=== PATIENT | male | born 1990 | race Caucasian/White ===

== ENCOUNTER 2017-08-04 20:47 | Emergency (ER) | payer MEDICAID ==
[~2017-08-04] VITALS: Ht 175.3 cm; Wt 113.4 kg
--- NOTE | 2017-08-04 22:17 | NUR ---
PT CAME FROM HOME COMPLAIN OF ABDOMINAL PAIN A FEW DAYS WITH N/V FOR A FEW DAYS. BLOOD PRESSURE IS SLIGHTLY ELEVATED WHEN PLACED ON THE MONITOR. WAS IN TO SEE PT AWAIT NEW ORDERS.
[2017-08-04] MEDS ORDERED: MAG HYDROX/AL HYDROX/SIMETH 30 ML UDC ONE (22:22)
[2017-08-04] MEDS ORDERED: LIDOCAINE VISCOUS 2% UD 15 ML UDC ONE (22:22)
[2017-08-04] MEDS ORDERED: FAMOTIDINE (20 MG) 20 MG TABLET ONE (22:23)
--- NOTE | 2017-08-04 22:28 | NUR ---
LAB HERE BLOOD DRAWN
[2017-08-04] MEDS ORDERED: LIDOCAINE VISCOUS 2% UD 15 ML UDC MM ONE (22:30)
[2017-08-04] MEDS ORDERED: FAMOTIDINE (20 MG) 20 MG TABLET PO ONE (22:30)
[2017-08-04] MEDS ORDERED: MAG HYDROX/AL HYDROX/SIMETH 30 ML UDC PO ONE (22:30)
--- NOTE | 2017-08-04 22:32 | NUR ---
MEDICATION GIVEN ORDERED BY MD, LIDOCAINE 5ML AND MAALOX 30ML GIVEN TOGETHER. WAIT ANY NEW ORDERS
[2017-08-04 22:34] LABS: BASOPHILS # (AUTO) 0.1 /CMM (0.0-0.2); EOSINOPHILS # (AUTO) 0.2 /CMM (0.0-0.7); EOSINOPHILS % (AUTO) 1.9 % (0.0-6.0); HEMATOCRIT 42 % (39-51); HEMOGLOBIN 14.2 g/dL (13.5-17.5); LYMPHOCYTES # (AUTO) 2.7 /CMM (0.8-4.8); LYMPHOCYTES % (AUTO) 32.4 % (20.0-44.0); MEAN CORPUSCULAR HEMOGLOBIN 29 PG (26.0-33.0); MEAN CORPUSCULAR HGB CONC 33 g/dl (31.0-36.0); MEAN CORPUSCULAR VOLUME 85 fL (80-96); MONOCYTES # (AUTO) 0.4 /CMM (0.1-1.30); MONOCYTES % (AUTO) 5.2 % (2.0-12.0); NEUTROPHILS % (AUTO) 59.5 % (43.0-81.0); PLATELET COUNT (AUTO) 286 /CMM (150-450); RDW COEFFICIENT OF VARIATION 12.7 (11.5-15.0); RED BLOOD CELL COUNT(AUTO) 4.96 MIL/uL (4.5-6.0); WHITE BLOOD COUNT (AUTO) 8.4 K/uL (4.3-11.0)
[2017-08-04 22:50] LABS: ALBUMIN 3.9 g/dL (3.4-5.0); BILIRUBIN,DIRECT 0.1 mg/dL (0.0-0.2); BILIRUBIN,TOTAL 0.5 mg/dL (0.2-1.0); CREATININE 0.7 mg/dL (0.6-1.3); POTASSIUM 3.7 mmol/L (3.5-5.1); TOTAL PROTEIN, SERUM 7.5 g/dL (6.4-8.2)
--- NOTE | 2017-08-04 23:34 | NUR ---
pt given discahrge instructions, verbal teaching.
[2017-08-04 23:36] VITALS: BP 123/74
== END 2017-08-04 23:38 | disposition home or self-care (01) ==
LOC: ER 20:56
DX: K21.9 Gastro-esophageal reflux disease without esophagitis (principal)
CPT/HCPCS: 36415; 80048-TC; 80076-TC; 83690-TC; 85025-TC; A4606; Z7610

== ENCOUNTER 2019-08-27 07:27 | Inpatient (IN) | payer MEDICAID ==
[~2019-08-27] VITALS: Ht 175.3 cm; Wt 88.5 kg
[2019-08-27] VITALS (11 sets, daily range): BP systolic 103–162; BP diastolic 59–73
--- NOTE | 2019-08-27 07:34 | NUR ---
abd pain since this morning, +N/V, -Diarrhea. on room air, breathing evenly and unlabored. Kept comfortable, will continue to monitor accordingly.
--- NOTE | 2019-08-27 07:35 | NUR ---
waiting for MD for eval
[2019-08-27] MEDS ORDERED: ONDANSETRON HCL/PF 4 MG/2 ML VIAL ONE ×2 (07:55→09:56)
--- NOTE | 2019-08-27 07:58 | NUR ---
BLOOD DRAWN AND SENT TO LAB
[2019-08-27] MEDS ORDERED: ONDANSETRON HCL/PF 4 MG/2 ML VIAL IVP ONE (08:00)
[2019-08-27] MEDS ORDERED: IV NS 0.9% 1,000 ML BAG IV ONE (08:00)
[2019-08-27 08:06] LABS: BASOPHILS # (AUTO) 0.1 /CMM (0.0-0.2); HEMOGLOBIN 14.8 g/dL (13.5-17.5); PLATELET COUNT (AUTO) 262 /CMM (150-450)
[2019-08-27 08:11] LABS: BASOPHILS % (AUTO) 0.3 % (0.0-2.0); CALCIUM, SERUM 9.4 mg/dL (8.5-10.1); EOSINOPHILS % (AUTO) 1.1 % (0.0-6.0); HEMATOCRIT 46 % (39-51); LYMPHOCYTES # (AUTO) 2.9 /CMM (0.8-4.8); LYMPHOCYTES % (AUTO) 15.4 % (20.0-44.0); MEAN CORPUSCULAR HGB CONC 33 g/dl (31.0-36.0); MEAN CORPUSCULAR VOLUME 90 fL (80-96); MONOCYTES # (AUTO) 0.6 /CMM (0.1-1.30); MONOCYTES % (AUTO) 3.1 % (2.0-12.0); NEUTROPHILS # (AUTO) 15.1 /CMM (1.8-8.9); NEUTROPHILS % (AUTO) 80.1 % (43.0-81.0); POTASSIUM 3.6 mmol/L (3.5-5.1); RED BLOOD CELL COUNT(AUTO) 5.05 MIL/uL (4.5-6.0); WHITE BLOOD COUNT (AUTO) 18.8 K/uL (4.3-11.0)
[2019-08-27] MEDS ORDERED: MAG HYDROX/AL HYDROX/SIMETH 30 ML UDC ONE (08:15)
[2019-08-27] MEDS ORDERED: LIDOCAINE VISCOUS 2% UD 15 ML UDC ONE (08:15)
[2019-08-27] MEDS ORDERED: P-EPHED SUL/LORATADINE(12H) 1 TAB.SR.12H PO ONE (08:16)
[2019-08-27 08:17] LABS: ALBUMIN 4.3 g/dL (3.4-5.0); BILIRUBIN,DIRECT 0.1 mg/dL (0.0-0.2); BILIRUBIN,TOTAL 0.8 mg/dL (0.2-1.0); TOTAL PROTEIN, SERUM 7.7 g/dL (6.4-8.2)
[2019-08-27] MEDS ORDERED: FAMOTIDINE/PF INJ 20 MG/2 ML VIAL IV ONE ×2 (08:17→08:30)
[2019-08-27] MEDS ORDERED: MAG HYDROX/AL HYDROX/SIMETH 30 ML UDC PO ONE (08:30)
[2019-08-27] MEDS ORDERED: LIDOCAINE VISCOUS 2% UD 15 ML UDC MM ONE (08:30)
--- NOTE | 2019-08-27 08:35 | NUR ---
PT IS WHEELED TO CT SCAN VIA [facility].
[2019-08-27] MEDS ORDERED: IV NS 0.9% 250 ML IV ONE (08:38)
[2019-08-27] MEDS ORDERED: IOHEXOL-300 100 ML VIAL IV ONE (08:38)
[2019-08-27] MEDS ORDERED: CT SWABBABLE VALVE TRANS SET 1 EA INFUS.SET MC ONE (08:38)
--- NOTE | 2019-08-27 09:00 | NUR ---
Called Dr Quinones and spoke with Dr Aguilar.
[2019-08-27] MEDS ORDERED: PIPERACILLIN /TAZOBACTAM 3.375 G in IV D5W 50 ML IV ONE (09:30)
[2019-08-27 09:37] LABS: APPEARANCE,URINE Clear (CLEAR); BILIRUBIN,URINE Negative (NEGATIVE); BLOOD, URINE Trace-intact Ery/uL (NEGATIVE); COLOR,URINE Yellow (YELLOW); KETONES,URINE Negative (NEGATIVE); LEUKOCYTE ESTERASE ,URINE Negative (NEGATIVE); NITRITE, URINE Negative (NEGATIVE); PH,URINE 6.5 (5.0-8.0); PROTEIN,URINE Negative (NEGATIVE); UGLUCOSE Negative (NEGATIVE); UROBILINOGEN,URINE 0.2 EU/dL (0.2)
[2019-08-27 09:51] LABS: BACTERIA,URINE Rare /HPF (None Seen); RBC,URINE 0-2 /HPF (0-2); SQUAMOUS EPITHELIAL CELL,UR Rare /HPF (None Seen); WBC,URINE 0-2 /HPF (0-3)
[2019-08-27] MEDS ORDERED: ONDANSETRON HCL/PF - ER 4 MG/2 ML VIAL IV ONE (10:00)
--- NOTE | 2019-08-27 10:05 | NUR ---
ROOM GIVEN [id number]
--- NOTE | 2019-08-27 10:11 | NUR ---
Paged [employer] telecommunication operator is Paul Farley DNP.
--- NOTE | 2019-08-27 10:26 | NUR ---
TRANSPORTED TO [facility] W RN AND EMT
--- NOTE | 2019-08-27 10:26 | NUR ---
REPORT GIVEN TO PAT RENDON
--- NOTE | 2019-08-27 10:35 | NUR ---
MS MATERIAL FLOW ENGINEER NOTE PATIENT ARRIVED VIA GURNEY. PATIENT AMBULATORY WITH STEADY GAIT AND WALKED TO THE BED. PATIENT IN NO ACUTE DISTRESS. NO SOB NOTED. PATIENT BREATHING IS EVEN AND UNLABORED. PATIENT VITAL SIGNS WNL. PATIENT AND SON AT THE BEDSIDE. PATIENT NEEDS AND CONCERNS ADDRESSED. IV INTACT. NOTIFIED HANS BYERS AND DR. BEASLEY FOR APPENDECTOMY. MD MADE AWARE. PER HANS BYERS , HE WILL FOLLOW UP WITH ADMITTING ORDERS. PATIENT BED IS LOCKED AND IN LOWEST POSITION. CALL LIGHT WITHIN REACH. WILL CONTINUE TO MONITOR.
[2019-08-27] MEDS ORDERED: IV D5/0.45 NACL 1,000 ML IV PRN (12:13)
[2019-08-27] MEDS ORDERED: ONDANSETRON HCL/PF 4 MG/2 ML VIAL IV PRN (12:30)
[2019-08-27] MEDS ORDERED: ACETAMINOPHEN 325 MG TABLET PO PRN (12:30)
[2019-08-27] MEDS ORDERED: MORPHINE SULFATE INJ 2 MG/ML DISP.SYRIN IV PRN (12:30)
[2019-08-27] MEDS ORDERED: ONDANSETRON HCL/PF 4 MG/2 ML VIAL IVP PRN (12:30)
[2019-08-27] MEDS ORDERED: ZOLPIDEM TARTRATE 5 MG TABLET PO PRN (12:30)
[2019-08-27] MEDS ORDERED: FENTANYL PF 100MCG/2ML AMPUL ONE ×2 (13:44→14:56)
[2019-08-27] MEDS ORDERED: MIDAZOLAM HCL 2 MG/2ML VIAL ONE (13:45)
[2019-08-27] MEDS ORDERED: LIDOCAINE HCL/PF 1% 30 ML SDV ONE (14:35)
[2019-08-27] MEDS ORDERED: BUPIVACAINE MPF 0.5% W/EPI INJ 30 ML VIAL ONE (14:35)
[2019-08-27] MEDS ORDERED: KETOROLAC TROMETHAMINE INJ 60 MG/2 ML VIAL IM ONE (15:02)
[2019-08-27] MEDS ORDERED: KETOROLAC TROMETHAMINE INJ 30 MG/ML VIAL ONE (15:04)
[2019-08-27] MEDS: IBUPROFEN 400 MG TABLET PO SCH ×2 (16:00→23:43)
[2019-08-27] MEDS: GABAPENTIN 300 MG CAPSULE PO SCH ×2 (16:00→23:43)
[2019-08-27] MEDS: ACETAMINOPHEN 325 MG TABLET PO SCH ×2 (16:00→23:43)
--- NOTE | 2019-08-27 16:45 | NUR ---
MS RN NOTE PATIENT RETURNS TO BED FROM APPENDECTOMY. SURGICAL SITE BANDAGE IS CLEAN, DRY AND INTACT. PATIENT VITAL SIGNS WNL. MAINTAINED ON ICE CHIPS ONLY, WITH CLEAR LIQUID DIET IN THE MORNING. WILL FOLLOW UP WITH ORDERS.
[2019-08-27] MEDS: PIPERACILLIN /TAZOBACTAM 3.375 G in IV D5W 100 ML IV SCH ×2 (16:50→23:42)
--- NOTE | 2019-08-27 17:01 | NUR ---
MS RN NOTE HELD IBUPROFEN, ACETAMINOPHEN, AND GABAPENTIN 1600 DOSES DUE TO PATIENT RETURNED FROM APPENDECTOMY WITH ORDER OF ICE CHIPS ONLY FOR TONIGHT.
[2019-08-27] MEDS: IV D5/0.45 NACL 1,000 ML IV PRN (17:09)
[2019-08-27] MEDS ORDERED: PIPERACILLIN /TAZOBACTAM 3.375 G in IV D5W 50 ML IV SCH (18:00)
--- NOTE | 2019-08-27 18:43 | NUR ---
MS RN CLOSING NOTE PATIENT IN BED RESTING COMFORTABLY. PATIENT IN NO ACUTE DISTRESS. NO SOB NOTED. PATIENT BREATHING IS EVEN AND UNLABORED. PATIENT BREATHING ON ROOM AIR SATURATING >95% SPO2. PATIENT SURGICAL BANDAGE CLEAN, DRY AND INTACT. PATIENT VITAL SIGNS WNL. PATIENT NEEDS AND CONCERNS ADDRESSED. PATIENT MAINTAINED ON ICE CHIPS FOR TONIGHT. PATIENT AT THE BEDSIDE. PATIENT KEPT CLEAN, DRY, AND COMFORTABLE THROUGHOUT SHIFT. PATIENT BED IS LOCKED AND IN LOWEST POSITION. CALL LIGHT WITHIN REACH. WILL ENDORSE CARE TO PM SHIFT FOR JUAN. Addendum: 08/27/19 at 1918 by JUSTICE JOHNSTON RN ENDORSED TO PROGRAM MEDICAL DIRECTOR TO FOLLOW UP WITH REMAINING POST OP ROUTINE VITALS. VITALS WNL AT THIS TIME.
--- NOTE | 2019-08-27 19:10 | NUR ---
MS RN OPENING NOTES RECEIVED PATIENT SITTING UP IN BED, ALERT, ORIENTED X 4, FAMILY AT BEDSIDE. BREATHING EVEN AND UNLABORED. NOT IN ANY DISTRESS, ON ROOM AIR. NO COMPLAINTS AT THIS TIME. PATIENT'S SURGICAL BANDAGE CLEAN, DRY AND INTACT. PATIENT REMAINS ON ICE CHIPS TONIGHT. SAFETY MEASURES IN PLACE, CALL LIGHT WITHIN REACH. BED IN LOW, LOCKED POSITION. WILL CONTINUE TO MONITOR ACCORDINGLY
--- NOTE | 2019-08-27 23:21 | NUR ---
RN NOTES PATIENT C/O ABDOMINAL PAIN, 05/17. V/S WNL. MORPHINE 4MG IV GIVEN ORDERED. WILL CONTINUE TO MONITOR
[2019-08-28] MEDS: HYDROMORPHONE 1 MG/1 ML DISP.SYRIN IV PRN ×3 (03:18→11:34)
--- NOTE | 2019-08-28 03:18 | NUR ---
RN NOTES PATIENT C/O ABDOMINAL PAIN, 05/17. V/S WNL. DILAUDID 0.5MG IV GIVEN ORDERED. WILL CONTINUE TO MONITOR
--- NOTE | 2019-08-28 06:46 | NUR ---
MS RN CLOSING NOTES PATIENT RESTING IN BED, ALERT, ORIENTED X 4. BREATHING EVEN AND UNLABORED. NOT IN ANY DISTRESS. ON ROOM AIR. NO COMPLAINTS AT THIS TIME. PERIPHERAL IV INFUSING AT 150ML/HR. NO ACUTE CHANGES OVERNIGHT. ALL NEEDS ATTENDED. SAFETY MEASURES IN PLACE. CALL LIGHT WITHIN REACH, BED IN LOW, LOCKED POSITION. WILL ENDORSE JUAN TO ONCOMING RN
[2019-08-28] MEDS: IV D5/0.45 NACL 1,000 ML IV PRN (06:57)
--- NOTE | 2019-08-28 07:03 | NUR ---
PATIENT C/O ABDOMINAL PAIN, 05/17. V/S WNL. DILAUDID 0.5MG IV GIVEN ORDERED. EXCESS WASTED WITH ANOTHER RN. WILL CONTINUE TO MONITOR
[2019-08-28 07:06] LABS: BASOPHILS % (AUTO) 0.1 % (0.0-2.0); HEMATOCRIT 43 % (39-51); HEMOGLOBIN 13.9 g/dL (13.5-17.5); LYMPHOCYTES # (AUTO) 1.5 /CMM (0.8-4.8); LYMPHOCYTES % (AUTO) 9.5 % (20.0-44.0); MEAN CORPUSCULAR HGB CONC 32 g/dl (31.0-36.0); MEAN CORPUSCULAR VOLUME 90 fL (80-96); MONOCYTES # (AUTO) 0.5 /CMM (0.1-1.30); MONOCYTES % (AUTO) 3.5 % (2.0-12.0); NEUTROPHILS # (AUTO) 13.5 /CMM (1.8-8.9); NEUTROPHILS % (AUTO) 86.9 % (43.0-81.0); PLATELET COUNT (AUTO) 267 /CMM (150-450); RED BLOOD CELL COUNT(AUTO) 4.75 MIL/uL (4.5-6.0); WHITE BLOOD COUNT (AUTO) 15.6 K/uL (4.3-11.0)
--- NOTE | 2019-08-28 07:15 | NUR ---
MS RN NOTES PATIENT IN BED ALERT ORIENTED X 4. NO ACUTE DISTRESS NOTED. BREATHING UNLABORED. IV ACCESS PATENT AND INTACT. NO REDNESS OR SWELLING NOTED. SAFETY MEASURES IN PLACE. CALL LIGHT WITHIN REACH. WILL CONTINUE TO MONITOR ACCORDINGLY.
[2019-08-28 07:20] LABS: THYROID STIMULATING HORMONE 0.856 uIU/mL (0.358-3.74)
[2019-08-28 07:30] LABS: ALBUMIN 3.6 g/dL (3.4-5.0); BILIRUBIN,TOTAL 0.9 mg/dL (0.2-1.0); CALCIUM, SERUM 8.6 mg/dL (8.5-10.1); CREATININE 1.1 mg/dL (0.6-1.3); MAGNESIUM 1.7 mg/dL (1.8-2.4); PHOSPHORUS 3.2 mg/dL (2.5-4.9); POTASSIUM 3.9 mmol/L (3.5-5.1); TOTAL PROTEIN, SERUM 7.2 g/dL (6.4-8.2)
[2019-08-28 08:00] VITALS: BP 109/59
[2019-08-28] MEDS: IBUPROFEN 400 MG TABLET PO SCH ×2 (08:00→15:39)
[2019-08-28] MEDS: ACETAMINOPHEN 325 MG TABLET PO SCH ×2 (08:00→15:39)
[2019-08-28] MEDS: PIPERACILLIN /TAZOBACTAM 3.375 G in IV D5W 100 ML IV SCH ×2 (08:01→15:36)
[2019-08-28] MEDS: GABAPENTIN 300 MG CAPSULE PO SCH ×2 (08:21→15:39)
[2019-08-28] MEDS: Magnesium 1GM/D5W 100ML PREMIX 100 ML IV SCH ×2 (12:04→13:05)
--- NOTE | 2019-08-28 13:03 | NUR ---
MS RN NOTES RECEIVED NEW ORDERS FROM DR HANS BYERS TO CHANGE DIET TO REGULAR, NOTED AND CARRIED OUT.
--- NOTE | 2019-08-28 15:36 | NUR ---
MS RN NOTES PATIENT CHANGED MIND AND REFUSED DILAUDID IV, UNABLE TO RETURN TO OMNI CELL, WASTED DILAUDID WITNESSED BY ANOTHER RN DWIGHT.
[2019-08-28 16:00] VITALS: BP 130/88
--- NOTE | 2019-08-28 18:40 | NUR ---
MS RN NOTES PATIENT DISCHARGE HOME WITH STABLE VITAL SIGNS. NO ACUTE DISTRESS NOTED. BREATHING UNLABORED. IV ACCESS REMOVED, NO BLEEDING, NO REDNESS, NO SWELLING NOTED. DISCHARGE INSTRUCTIONS GIVEN TO THE PATIENT, VERBALIZED UNDERSTANDING. NEEDS ATTENDED AND ANTICIPATED. ALL BELONGINGS ACCOUNTED FOR. ABDOMINAL DRESSING CLEAN DRY AND INTACT. PATIENT REFUSED PHOTO TAKEN. ASSISTED TO THE LOBBY, PICKED UP VIA PRIVATE CAR ACCOMPANIED BY IN STABLE CONDITION. PATIENT AMBULATORY WITH STEADY GAIT.
== END 2019-08-28 18:35 | disposition home or self-care (01) | DRG 234 ==
LOC: ER 07:27 → MED 11:07
PROVIDERS: ADMIT Nurse Practitioner Acute Care; ATTEND Nurse Practitioner Acute Care
PROC: 0DTJ4ZZ Resection of Appendix, Percutaneous Endoscopic Approach (ICD-10-PCS; principal; 2019-08-27)
DX: K35.80 Unspecified acute appendicitis (principal); E83.42 Hypomagnesemia; K21.9 Gastro-esophageal reflux disease without esophagitis
CPT/HCPCS: 36415; 80048-TC; 80053-TC; 80061-TC; 80076-TC; 81000-TC; 83690-TC; 83735-TC; 83880; 84100-TC; 84443-TC; 85025-TC; 85730-TC; 86850-TC; 87081-TC; 88304-TC; G0378; J1170; J1885; J2250; J2270; J2405; J2543; J3010; J3475; J3490; J7030; J7050; J7060; Q9967

== ENCOUNTER 2020-05-18 19:56 | Emergency (ER) | payer MEDICAID ==
[~2020-05-18] VITALS: Ht 175.3 cm; Wt 88.5 kg
--- NOTE | 2020-05-18 20:05 | NUR ---
PT WAS BIBS TO THE ER FOR C/O L MIDDLE FINGER PAIN, SWELLING AND INABILITY TO BEND X 2 DAYS. PT REPORTED HE JUST WOKE UP LAST WK AND DOES NOT RECALL ANY TRAUMA. NO BRUISES NOTED.
--- NOTE | 2020-05-18 20:11 | NUR ---
PAULA AUGUSTINE PAC AT THE BED SIDE
--- NOTE | 2020-05-18 20:13 | NUR ---
X RAY AT THE BED SIDE
--- NOTE | 2020-05-18 21:20 | NUR ---
pt received finger splint and medically stable for d/c. Patient discharged to home in stable condition. rx and Written and verbal after care instructions given. Patient verbalizes understanding of instruction. pt was instructed to f/u with his PCP within 48 hrs
[2020-05-18 21:22] VITALS: BP 119/75
== END 2020-05-18 21:23 | disposition home or self-care (01) ==
LOC: ER 19:57
DX: M79.645 Pain in left finger(s) (principal); K21.9 Gastro-esophageal reflux disease without esophagitis; Z90.89 Acquired absence of other organs; W22.8XXA Striking against or struck by other objects, initial encounter; Y93.89 Activity, other specified; Y92.89 Other specified places as the place of occurrence of the external cause; Y99.8 Other external cause status
CPT/HCPCS: 73140-TC

== ENCOUNTER 2020-07-13 13:59 | Emergency (ER) | payer MEDICAID ==
[~2020-07-13] VITALS: Ht 175.3 cm; Wt 90.7 kg
[2020-07-13 14:04] VITALS: BP 137/93
== END 2020-07-13 14:45 | disposition home or self-care (01) ==
LOC: ER 14:02
DX: K29.70 Gastritis, unspecified, without bleeding (principal); B35.6 Tinea cruris; K21.9 Gastro-esophageal reflux disease without esophagitis; Z90.89 Acquired absence of other organs

== ENCOUNTER 2021-04-07 14:23 | Emergency (ER) | payer MEDICAID ==
[~2021-04-07] VITALS: Ht 175.3 cm; Wt 95.3 kg
--- NOTE | 2021-04-07 15:00 | NUR ---
The patient is bib family member for c/o "I woke up feeling dizzy-feels like room moving. Nausea/vomiting". Denies pain at this time. Abdomen soft and non-distended. Denies sob. respiration regular and unlabored. will continue to monitor the patient.
[2021-04-07 15:34] LABS: BASOPHILS % (AUTO) 0.4 % (0.0-2.0); EOSINOPHILS % (AUTO) 0.4 % (0.0-6.0); HEMATOCRIT 43 % (39-51); HEMOGLOBIN 14.2 g/dL (13.5-17.5); LYMPHOCYTES # (AUTO) 0.6 K/uL (0.8-4.8); LYMPHOCYTES % (AUTO) 5.4 % (20.0-44.0); MEAN CORPUSCULAR HGB CONC 33 g/dl (31.0-36.0); MEAN CORPUSCULAR VOLUME 90 fL (80-96); MONOCYTES # (AUTO) 0.4 K/uL (0.1-1.30); MONOCYTES % (AUTO) 3.8 % (2.0-12.0); PLATELET COUNT (AUTO) 235 K/uL (150-450); RED BLOOD CELL COUNT(AUTO) 4.81 MIL/uL (4.5-6.0); WHITE BLOOD COUNT (AUTO) 11.1 K/uL (4.3-11.0)
[2021-04-07 15:51] LABS: CALCIUM, SERUM 8.7 mg/dL (8.5-10.1); CARBON DIOXIDE 26 mmol/L (21-32); CHLORIDE 101 mmol/L (98-107); CREATININE 1.1 mg/dL (0.6-1.3); GLUCOSE 115 mg/dL (74-106); POTASSIUM 3.9 mmol/L (3.5-5.1); SODIUM SERUM 137 mmol/L (136-145); UREA NITROGEN, BLOOD 13 mg/dL (7-18)
[2021-04-07] MEDS ORDERED: diphenhydrAMINE HCL 50 MG/ML VIAL ONE (15:54)
[2021-04-07] MEDS ORDERED: ONDANSETRON HCL/PF 4 MG/2 ML VIAL ONE (15:54)
[2021-04-07 15:56] LABS: ALANINE AMINOTRANSFERASE 81 U/L (12-78); ALBUMIN 4.2 g/dL (3.4-5.0); ALKALINE PHOSPHATASE 89 U/L (46-116); ASPARTATE AMINOTRANSFERASE 26 U/L (15-37); BILIRUBIN,DIRECT 0.2 mg/dL (0.0-0.2); BILIRUBIN,TOTAL 0.8 mg/dL (0.2-1.0); LIPASE 68 U/L (73-393); TOTAL PROTEIN, SERUM 7.7 g/dL (6.4-8.2)
[2021-04-07] MEDS: ONDANSETRON HCL/PF 4 MG/2 ML VIAL IVP ONE (16:05)
[2021-04-07] MEDS: IV NS 0.9% 1,000 ML BAG IV ONE (16:05)
[2021-04-07] MEDS: diphenhydrAMINE HCL 50 MG/ML VIAL IV ONE (16:05)
[2021-04-07] MEDS ORDERED: MORPHINE SULFATE INJ 4 MG/ML DISP.SYRIN ONE (16:23)
[2021-04-07] MEDS: MORPHINE SULFATE INJ 2 MG/ML DISP.SYRIN IV ONE (16:25)
[2021-04-07] MEDS ORDERED: MECL-159 PO (17:17)
[2021-04-07] MEDS ORDERED: IBUP-1957 PO (17:17)
[2021-04-07 17:42] VITALS: BP 126/82
--- NOTE | 2021-04-07 17:42 | NUR ---
Patient discharged to home in stable condition. Written and verbal after care instructions given. Patient verbalizes understanding of instruction.
== END 2021-04-07 17:42 | disposition home or self-care (01) ==
LOC: ER 15:09
DX: R42 Dizziness and giddiness (principal); R10.9 Unspecified abdominal pain; B34.9 Viral infection, unspecified; K21.9 Gastro-esophageal reflux disease without esophagitis; Z90.89 Acquired absence of other organs
CPT/HCPCS: 36415; 70450; 71045; 74176; 80048; 80076; 83690; 84484; 85025; 93005; 96361; 96374; 96375; 99285; J1200; J2270; J2405; J7030

== ENCOUNTER 2022-02-20 00:29 | Emergency (ER) | payer MEDICAID ==
[~2022-02-20] VITALS: Ht 175.3 cm; Wt 95.3 kg
[~2022-02-20 00:29] MED LIST: IBUP-1957 PO; MECL-159 PO
--- NOTE | 2022-02-20 01:07 | NUR ---
DEON FOR C/O OVERDOSE ON COCAINE. FOUND UNRESPONSIVE IN THE FIELD AND GIVEN NARCAN IN THE FIELD. ON ASSESSMENT PT AWAKE AND ALERT X4 BREATHING EVEN AND UNLABORED. CHANGED INTO GOWN AND PLACED ON MONITOR AND V/S WNL.
--- NOTE | 2022-02-20 01:37 | NUR ---
NESTOR ([facility])
[2022-02-20] MEDS ORDERED: ONDANSETRON 4 MG TAB.RAPDIS ONE (02:29)
[2022-02-20] MEDS ORDERED: ONDANSETRON 4 MG TAB.RAPDIS SL ONE (02:30)
[2022-02-20] MEDS ORDERED: NALO1DIS2 IM (05:06)
--- NOTE | 2022-02-20 05:21 | NUR ---
Patient discharged to home in stable condition. Written and verbal after care instructions given. Patient verbalizes understanding of instruction.
[2022-02-20 05:22] VITALS: BP 127/82
== END 2022-02-20 05:22 | disposition home or self-care (01) ==
LOC: ER 00:31
DX: T40.2X1A Poisoning by other opioids, accidental (unintentional), initial encounter (principal); R40.4 Transient alteration of awareness; Z90.89 Acquired absence of other organs; Z79.899 Other long term (current) drug therapy; Y92.89 Other specified places as the place of occurrence of the external cause
CPT/HCPCS: 99285; Q0162

== ENCOUNTER 2023-06-09 22:24 | Emergency (ER) | payer MEDICAID ==
[~2023-06-09] VITALS: Ht 175.3 cm; Wt 97.5 kg
[~2023-06-09 22:24] MED LIST changes: +NALO1DIS2 IM
[2023-06-09 23:52] VITALS: BP 121/82; TEMP 98.2; O2SAT 98
== END 2023-06-09 23:52 | disposition home or self-care (01) ==
LOC: ER 22:32
DX: S00.83XA Contusion of other part of head, initial encounter (principal); F10.129 Alcohol abuse with intoxication, unspecified; R42 Dizziness and giddiness; Z79.899 Other long term (current) drug therapy; Z90.49 Acquired absence of other specified parts of digestive tract; Y90.9 Presence of alcohol in blood, level not specified; W18.39XA Other fall on same level, initial encounter; Y93.89 Activity, other specified; Y92.89 Other specified places as the place of occurrence of the external cause; Y99.8 Other external cause status
CPT/HCPCS: 70450-TC; 70486-TC